=== PATIENT | male | born 1995 | race Caucasian/White ===

== ENCOUNTER 2017-01-04 22:40 | Emergency (ER) | payer BC ==
[2017-01-04 22:48] VITALS: TEMP 98.1
[2017-01-04] MEDS ORDERED: IBUPROFEN 200 MG TAB PO ONE (23:06)
--- NOTE | 2017-01-04 23:06 | EDPHY ---
H & P Stated Complaint: sore throat lungs "on fire" vomiting yesterday Time Seen by Provider: 01/04/17 22:52 HPI/ROS: Chief Complaint: Sore throat, fever, cough HPI: 21-year-old male presenting with 3 days of viral upper respiratory symptoms including cough, body aches, chills, sore throat. Patient states that his body aches have improved he has had worsening sore throat throughout today. Hurts to swallow but is able to swallow. Has not taken any medications since then Advil yesterday which did not help. His has not taken his temperature at home. No nausea or vomiting. No abdominal pain. Is continuing to have some mild body aches. No skin rash. ROS: 10 point Review of Systems is negative except as noted in the HPI. PMH: None Medications: None Allergies: No known drug allergies Social History: No smoking, occasional alcohol, occasional marijuana Family History: non-contributory Physical Exam: Gen: Awake, Alert, No Distress HEENT: Nose: no rhinorrhea Eyes: PERRLA, EOMI Mouth: Moist mucosa diffuse tonsillar and oral pharyngeal erythema with some exudate. Uvula is midline, no peritonsillar swelling or asymmetry Neck: Supple, mild bilateral cervical lymphadenopathy Chest: nontender, lungs clear to auscultation Heart: S1, S2 normal, no murmur Abd: Soft, non-tender, no guarding Back: no CVA tenderness, no midline tenderness Ext: no edema, non-tender Skin: no rash Neuro: CN II-XII intact, Sensation grossly intact, Strength 5/5 in bilateral upper and lower extremities - Personal History Current Tetanus/Diphtheria Vaccine: Yes Current Tetanus Diphtheria and Acellular Pertussis (TDAP): Yes - Medical/Surgical History Hx Asthma: No Hx Chronic Respiratory Disease: No Hx Diabetes: No Hx Cardiac Disease: No Hx Renal Disease: No Hx Cirrhosis: No Hx Alcoholism: No Hx HIV/AIDS: No Hx Splenectomy or Spleen Trauma: No Other PMH: None - Social History Smoking Status: Current every day smoker Constitutional: Initial Vital Signs Temperature (C) 36.7 C 01/04/17 22:44 Heart Rate 88 01/04/17 22:44 Respiratory Rate 19 01/04/17 22:44 Blood Pressure 118/82 H 01/04/17 22:44 O2 Sat (%) 93 01/04/17 22:44 O2 Delivery Mode Room Air Allergies/Adverse Reactions: Unable to Assess Allergy (Unverified 08/16/15 00:50) Home Medications: Medication Instructions Recorded Doryx 01/04/17 Medical Decision Making ED Course/Re-evaluation: Rapid strep is negative. Symptoms are consistent with viral upper respiratory infection. I will recommend alternating ibuprofen with acetaminophen. Over-the -counter decongestants are fine. There is no indication for antibiotics at this time. Will follow up with primary care physician referral. - Data Points Laboratory Results: 01/04/17 01/04/17 Unknown 23:00 Group A Strep Screen NEGATIVE (NEGATIVE) Group A Strep DNA Pending Medications Given: Discontinued Medications Ibuprofen (Motrin) 400 mg PO EDNOW ONE Stop: 01/04/17 23:07 Last Admin: 01/04/17 23:28 Dose: 400 mg Departure - Departure Disposition: Home, Routine, Self-Care Clinical Impression: Viral upper respiratory illness, Bronchitis Condition: Good Instructions: Viral Syndrome (ED), Albuterol (By breathing), How to Use a Metered-Dose Inhaler (ED) Additional Instructions: You may alternate ibuprofen with acetaminophen as needed for fevers, chills, aches or pains. You may take [id number] cough and cold medications according to package instructions for symptom relief. Make sure to drink plenty of fluids and get plenty of rest. You may use the inhaler, 2 puffs with spacer every 4 hours as needed for cough or wheeze. Follow up with primary care physician in 3-4 days if symptoms are not improving. Referrals: NONE *PRIMARY CARE P,. [Primary Care Provider] - As per Instructions Jacob Kaufman MD [Medical Doctor] - As per Instructions
[2017-01-04] MEDS ORDERED: ALBUTEROL INH PREPACK MDI TAKEHOME ONE ×2 (23:36→23:40)
[2017-01-05 00:07] VITALS: BP 118/74; PULSE 89; RESP 20; O2SAT 94
== END 2017-01-05 00:07 | disposition home or self-care (01) ==
DX: J40 Bronchitis, not specified as acute or chronic (principal); J06.9 Acute upper respiratory infection, unspecified; F17.200 Nicotine dependence, unspecified, uncomplicated

== ENCOUNTER 2017-03-23 18:16 | Emergency (ER) | payer BC ==
[2017-03-23 18:27] VITALS: PULSE 93; RESP 16; TEMP 98.2; O2SAT 95
[2017-03-23 18:28] VITALS: BP 113/62
--- NOTE | 2017-03-23 18:41 | EDPHY ---
H & P Time Seen by Provider: 03/23/17 18:34 HPI/ROS: Chief complaint. Seizure HPI. 21-year-old male here by EMS after having a witnessed seizure. Patient tells me was sitting on the couch with friends watching a movie. Then he has a period of time which he does not remember and friends report tonic clonic seizure lasting 45 seconds to 1 minute. Patient is now back to normal. Did not bite his tongue. He did have a seizure 2 years ago but did not have any evaluations since. He is not sick. No recent head injury. Denies drugs or alcohol. No chest pain, shortness of breath, abdominal pain. ROS Constitutional. no fever/chills, no weakness Eyes. no problems with vision ENT. no sore throat, no nasal drainage Cardiovascular. no chest pain Respiratory. no shortness of breath, no cough Abdominal. no abdominal pain, no nausea/vomiting, no diarrhea . no problems urinating MS. no calf pain/swelling, no neck/back pain, no joint pain Skin. no rash Lymph. no swollen glands Neuro. Seizure Past Medical/Surgical History: Attention deficit hyperactivity disorder, seizure Social History: Single, daily smoker, no alcohol Smoking Status: Current every day smoker Physical Exam: General Appearance: Alert well-developed male mild distress vital signs are stable Eyes: Pupils equal and round no pallor or injection. ENT, mucous membranes are moist. No oral pharyngeal or tongue trauma Respiratory: There are no retractions, lungs are clear to auscultation. Cardiovascular: Regular rate and rhythm. Gastrointestinal: Abdomen is soft and nontender, no masses, bowel sounds normal. Neurological: Awake and alert, sensory and motor exams grossly normal. Skin: Warm and dry, no rashes. Musculoskeletal: Neck is supple nontender. Extremities symmetrical, full range of motion. Psychiatric: Patient is oriented X 3, there is no agitation. Constitutional: Initial Vital Signs Temperature (C) 36.8 C 03/23/17 18:25 Heart Rate 93 03/23/17 18:25 Respiratory Rate 16 03/23/17 18:25 Blood Pressure 113/62 03/23/17 18:25 O2 Sat (%) 95 03/23/17 18:25 O2 Delivery Mode Room Air Allergies/Adverse Reactions: No Known Allergies Allergy (Unverified 03/23/17 18:27) Home Medications: Medication Instructions Recorded Kaylin 03/23/17 Medical Decision Making - Diagnostics Imaging Results: Declines head CT Procedures: IV normal saline, seizure precautions ED Course/Re-evaluation: Patient declines head CT Re-evaluation 7:05 p.m.. The patient and I discussed laboratory evaluation, treatment plan including no driving or other dangerous activity until evaluated by neurologist. He expresses understanding and agreement. The patient is alert and oriented to person place time. He is clearly competent to make decisions as well as to be treated as an outpatient Differential Diagnosis: The patient has had a previous seizure without workup. He may have epilepsy. This may be substance abuse or substance withdrawal. I also considered hypoglycemia - Data Points Laboratory Results: Laboratory Results 03/23/17 18:20 03/23/17 18:20 03/23/17 03/23/17 18:20 18:20 WBC 13.88 10^3/uL H 10^3/uL (3.80-9.50) RBC 5.01 10^6/uL 10^6/uL (4.40-6.38) Hgb 15.8 g/dL g/dL (13.7-17.5) Hct 47.5 % % (40.0-51.0) MCV 94.8 fL fL (81.5-99.8) MCH 31.5 pg pg (27.9-34.1) MCHC 33.3 g/dL g/dL (32.4-36.7) RDW 14.0 % % (11.5-15.2) Plt Count 502 10^3/uL H 10^3/uL (150-400) MPV 9.7 fL fL (8.7-11.7) Neut % (Auto) 49.5 % % (39.3-74.2) Lymph % (Auto) 34.7 % % (15.0-45.0) [place] % (Auto) 9.5 % % (4.5-13.0) Eos % (Auto) 5.0 % % (0.6-7.6) Baso % (Auto) 0.9 % % (0.3-1.7) Nucleat RBC Rel Count 0.0 % % (0.0-0.2) Absolute Neuts (auto) 6.87 10^3/uL H 10^3/uL (1.70-6.50) Absolute Lymphs (auto) 4.81 10^3/uL H 10^3/uL (1.00-3.00) Absolute Monos (auto) 1.32 10^3/uL H 10^3/uL (0.30-0.80) Absolute Eos (auto) 0.69 10^3/uL H 10^3/uL (0.03-0.40) Absolute Basos (auto) 0.13 10^3/uL H 10^3/uL (0.02-0.10) Absolute Nucleated RBC 0.00 10^3/uL 10^3/uL (0-0.01) Immature Gran % 0.4 % % (0.0-1.1) Immature Gran # 0.06 10^3/uL 10^3/uL (0.00-0.10) Sodium 139 mEq/L mEq/L (134-144) Potassium 4.4 mEq/L mEq/L (3.5-5.2) Chloride 101 mEq/L mEq/L (97-110) Carbon Dioxide 15 mEq/l L mEq/l (22-31) Anion Gap 23 mEq/L H mEq/L (8-16) BUN 11 mg/dL mg/dL (7-23) Creatinine 0.9 mg/dL mg/dL (0.7-1.3) Estimated GFR > 60 Glucose 94 mg/dL mg/dL (70-100) Calcium 10.1 mg/dL mg/dL (8.5-10.4) Departure - Departure Disposition: Against Medical Advice Clinical Impression: Seizure Condition: Good Instructions: Recurrent Seizures in Adults (ED) Additional Instructions: No driving or other dangerous activity until you are evaluated and cleared by Neurology. Call tomorrow morning for follow-up appointment for Neurology. Return for another seizure. Referrals: Patient,NotPresent [Unknown] - As per Instructions
[2017-03-23 18:53] LABS: % IMMATURE GRANULYOCYTES 0.4 % (0.0-1.1); ABSOLUTE IMMATURE GRANULOCYTES 0.06 10^3/uL (0.00-0.10); ADD DIFF? NO; ADD MORPH? NO; ADD SCAN? NO; ATYPICAL LYMPHOCYTE FLAG 20 (0-99); FRAGMENT RBC FLAG 0 (0-99); HEMATOCRIT 47.5 % (40.0-51.0); HEMOGLOBIN 15.8 g/dL (13.7-17.5); LEFT SHIFT FLG 0 (0-99); LIPEMIA HEMOLYSIS FLAG 80 (0-99); MEAN CELL HEMOGLOBIN 31.5 pg (27.9-34.1); MEAN CELL HEMOGLOBIN CONCENTR. 33.3 g/dL (32.4-36.7); MEAN CELL VOLUME 94.8 fL (81.5-99.8); MEAN PLATELET VOLUME 9.7 fL (8.7-11.7); PLATELET CLUMPS FLAG 0 (0-99); PLATELET COUNT 502 10^3/uL (150-400); RED BLOOD CELL COUNT 5.01 10^6/uL (4.40-6.38)
[2017-03-23 18:59] LABS: ANION GAP 23 mEq/L (8-16); CALCIUM 10.1 mg/dL (8.5-10.4); CARBON DIOXIDE 15 mEq/l (22-31); CHLORIDE 101 mEq/L (97-110); CREATININE 0.9 mg/dL (0.7-1.3); GLOMERULAR FILTRATION RATE > 60; GLUCOSE 94 mg/dL (70-100); POTASSIUM 4.4 mEq/L (3.5-5.2); SODIUM 139 mEq/L (134-144)
== END 2017-03-23 19:13 | disposition left against medical advice (07) ==
LOC: EDUNIT#
DX: G40.909 Epilepsy, unspecified, not intractable, without status epilepticus (principal); F17.200 Nicotine dependence, unspecified, uncomplicated

== ENCOUNTER 2017-03-27 09:47 | Emergency (ER) | payer BC ==
--- NOTE | 2017-03-27 10:26 | EDPHY ---
H & P Time Seen by Provider: 03/27/17 10:06 HPI/ROS: Chief complaint. Nausea vomiting HPI. 21-year-old male presents emergency department with nausea vomiting this morning with some streaks of blood. He had a fever 2 days ago with slight sore throat. No diarrhea. He had an noticed any abdominal pain but with nurse examining his abdomen he has slight left lower quadrant pain only with palpation. No chest discomfort or trouble breathing. No similar symptoms of vomiting blood previously. No epigastric pain. Patient was seen in our emergency department 4 days ago for his 2nd seizure and declined head CT and in fact left AMA before labs were returned. No further seizures since ROS Constitutional. no fever/chills, no weakness Eyes. no problems with vision ENT. no sore throat, no nasal drainage Cardiovascular. no chest pain Respiratory. no shortness of breath, no cough Abdominal. Nausea vomiting with slight left lower quadrant abdominal pain. Streaks of blood in emesis . no problems urinating MS. no calf pain/swelling, no neck/back pain, no joint pain Skin. no rash Lymph. no swollen glands Neuro. no headache, no dizziness, no difficulty walking or with speech Past Medical/Surgical History: Seizure and attention deficit hyperactivity disorder Social History: Single, daily smoker, no alcohol Smoking Status: Current every day smoker Physical Exam: General Appearance: Alert well-developed male mild distress vital signs significant for heart rate 96 Eyes: Pupils equal and round no pallor or injection. ENT, Mouth: Mucous membranes are moist. Respiratory: There are no retractions, lungs are clear to auscultation. Cardiovascular: Regular rate and rhythm. Gastrointestinal: Abdomen is soft with slight tenderness in the left lower quadrant. No masses. Normal bowel sounds Neurological: Awake and alert, sensory and motor exams grossly normal. Skin: Warm and dry, no rashes. Musculoskeletal: Neck is supple nontender. Extremities symmetrical, full range of motion. Psychiatric: Patient is oriented X 3, there is no agitation. Constitutional: Initial Vital Signs Temperature (C) 36.7 C 03/27/17 09:52 Heart Rate 96 03/27/17 09:52 Respiratory Rate 17 03/27/17 09:52 Blood Pressure 108/71 03/27/17 09:52 O2 Sat (%) 95 03/27/17 09:52 O2 Delivery Mode Room Air Allergies/Adverse Reactions: diazepam [From Valium] Allergy (Verified 03/27/17 09:52) Home Medications: Medication Instructions Recorded Coreye 03/23/17 Famotidine [Pepcid] 40 mg PO DAILY #10 tablet 03/27/17 Medical Decision Making - Diagnostics Imaging Results: Imaging Impressions Abdomen CT 03/27/17 11:39 Impression: 1. Incidental small hemangioma suspected within the liver. 2. Reticular nodular densities left lower lobe posterior laterally possibly from focal radiculitis. 3. No CT evidence of appendicitis, abscess or bowel obstruction. Findings discussed with Sheng Yuan M.D. at 13:08 hour, 03/27/2017. CT abdomen and pelvis with IV contrast reviewed by me and discussed with Dr. Rai is nonacute Procedures: IV normal saline. IV Pepcid and Zofran ED Course/Re-evaluation: Re-evaluation 11:35 a.m. patient is stable. We discussed laboratory evaluation in markedly elevated white blood cell count. We discussed abdominal CT with IV contrast. He expresses understanding and agreement. Re-evaluation 1:30 p.m.--patient is stable and without symptoms. No vomiting in the emergency department. He and I discussed imaging study results, treatment plan, criteria for return, importance of follow-up and further evaluation. He expresses understanding and agreement Differential Diagnosis: I considered pancreatitis, diverticulitis, peptic ulcer disease, GI bleeding. This was likely a Jennifer-Menendez tear - Data Points Laboratory Results: Laboratory Results 03/27/17 10:05 03/27/17 10:05 03/27/17 03/27/17 10:05 10:05 WBC 14.69 10^3/uL H 10^3/uL (3.80-9.50) RBC 4.50 10^6/uL 10^6/uL (4.40-6.38) Hgb 14.1 g/dL g/dL (13.7-17.5) Hct 42.0 % % (40.0-51.0) MCV 93.3 fL fL (81.5-99.8) MCH 31.3 pg pg (27.9-34.1) MCHC 33.6 g/dL g/dL (32.4-36.7) RDW 13.6 % % (11.5-15.2) Plt Count 330 10^3/uL 10^3/uL (150-400) MPV 9.5 fL fL (8.7-11.7) Neut % (Auto) 77.9 % H % (39.3-74.2) Lymph % (Auto) 11.5 % L % (15.0-45.0) [place] % (Auto) 7.6 % % (4.5-13.0) Eos % (Auto) 2.0 % % (0.6-7.6) Baso % (Auto) 0.5 % % (0.3-1.7) Nucleat RBC Rel Count 0.0 % % (0.0-0.2) Absolute Neuts (auto) 11.43 10^3/uL H 10^3/uL (1.70-6.50) Absolute Lymphs (auto) 1.69 10^3/uL 10^3/uL (1.00-3.00) Absolute Monos (auto) 1.11 10^3/uL H 10^3/uL (0.30-0.80) Absolute Eos (auto) 0.30 10^3/uL 10^3/uL (0.03-0.40) Absolute Basos (auto) 0.08 10^3/uL 10^3/uL (0.02-0.10) Absolute Nucleated RBC 0.00 10^3/uL 10^3/uL (0-0.01) Immature Gran % 0.5 % % (0.0-1.1) Immature Gran # 0.08 10^3/uL 10^3/uL (0.00-0.10) Sodium 143 mEq/L mEq/L (134-144) Potassium 4.4 mEq/L mEq/L (3.5-5.2) Chloride 108 mEq/L mEq/L (97-110) Carbon Dioxide 21 mEq/l L mEq/l (22-31) Anion Gap 14 mEq/L mEq/L (8-16) BUN 10 mg/dL mg/dL (7-23) Creatinine 0.6 mg/dL L mg/dL (0.7-1.3) Estimated GFR > 60 Glucose 90 mg/dL mg/dL (70-100) Calcium 9.4 mg/dL mg/dL (8.5-10.4) Total Bilirubin 0.3 mg/dL mg/dL (0.1-1.4) Conjugated Bilirubin 0.3 mg/dL mg/dL (0.0-0.5) Unconjugated Bilirubin 0.0 mg/dL mg/dL (0.0-1.1) AST 30 IU/L IU/L (17-59) ALT 27 IU/L IU/L (21-72) Alkaline Phosphatase 73 IU/L IU/L (38-126) Total Protein 6.7 g/dL g/dL (6.3-8.2) Albumin 4.1 g/dL g/dL (3.5-5.0) Lipase 97.0 IU/L IU/L (23-300) Medications Given: Discontinued Medications Sodium Chloride (Ns) 1,000 mls @ 0 mls/hr IV EDNOW ONE; Wide Open PRN Reason: Protocol Stop: 03/27/17 10:36 Last Admin: 03/27/17 10:58 Dose: 1,000 mls Famotidine/Sodium Chloride (Pepcid 20 Mg (Premix)) 50 mls @ 200 mls/hr IV EDNOW ONE Stop: 03/27/17 10:49 Last Admin: 03/27/17 10:58 Dose: 50 mls Ondansetron HCl (Zofran) 4 mg IVP EDNOW ONE Stop: 03/27/17 10:36 Last Admin: 03/27/17 10:58 Dose: 4 mg Departure - Departure Disposition: Home, Routine, Self-Care Clinical Impression: Abdominal pain Qualifiers: Abdominal location: left lower quadrant Qualified Code(s): R10.32 - Left lower quadrant pain Condition: Good Instructions: Gastritis (ED) Additional Instructions: Caution with aspirin, Advil, alcohol as these could irritate your stomach. Pepcid daily to help soothe stomach. Zofran if needed for nausea and vomiting. Return for worsening symptoms. Recheck in 2-3 days if not improved. Referrals: NONE *PRIMARY CARE P,. [Primary Care Provider] - As per Instructions Nilson Fisher MD [Medical Doctor] - 2-3 days, if not improved Prescriptions: Famotidine [Pepcid] 40 mg PO DAILY #10 tablet
[2017-03-27] MEDS ORDERED: FAMOTIDINE 20 MG/NACL 50 ML IV ONE (10:35)
[2017-03-27] MEDS ORDERED: ONDANSETRON 4 MG/2 ML VIAL IVP ONE (10:35)
[2017-03-27] MEDS ORDERED: NS 1,000 ML IV ONE (10:35)
[2017-03-27 10:41] LABS: % IMMATURE GRANULYOCYTES 0.5 % (0.0-1.1); ABSOLUTE IMMATURE GRANULOCYTES 0.08 10^3/uL (0.00-0.10); ADD DIFF? NO; ADD MORPH? NO; ADD SCAN? NO; ATYPICAL LYMPHOCYTE FLAG 10 (0-99); FRAGMENT RBC FLAG 0 (0-99); HEMOGLOBIN 14.1 g/dL (13.7-17.5); LEFT SHIFT FLG 0 (0-99); LIPEMIA HEMOLYSIS FLAG 80 (0-99); MEAN CELL HEMOGLOBIN 31.3 pg (27.9-34.1); MEAN CELL HEMOGLOBIN CONCENTR. 33.6 g/dL (32.4-36.7); MEAN CELL VOLUME 93.3 fL (81.5-99.8); MEAN PLATELET VOLUME 9.5 fL (8.7-11.7); PLATELET CLUMPS FLAG 20 (0-99); PLATELET COUNT 330 10^3/uL (150-400); RED CELL DISTRIBUTION WIDTH 13.6 % (11.5-15.2)
[2017-03-27 10:47] LABS: ALANINE AMINOTRANSFERASE 27 IU/L (21-72); ALBUMIN 4.1 g/dL (3.5-5.0); ALKALINE PHOSPHATASE 73 IU/L (38-126); ANION GAP 14 mEq/L (8-16); ASPARTATE AMINOTRANSFERASE 30 IU/L (17-59); BILIRUBIN,TOTAL 0.3 mg/dL (0.1-1.4); BILIRUBIN-CONJUGATED 0.3 mg/dL (0.0-0.5); CALCIUM 9.4 mg/dL (8.5-10.4); CARBON DIOXIDE 21 mEq/l (22-31); CHLORIDE 108 mEq/L (97-110); CREATININE 0.6 mg/dL (0.7-1.3); GLOMERULAR FILTRATION RATE > 60; GLUCOSE 90 mg/dL (70-100); POTASSIUM 4.4 mEq/L (3.5-5.2); SODIUM 143 mEq/L (134-144); TOTAL PROTEIN 6.7 g/dL (6.3-8.2)
[2017-03-27] MEDS ORDERED: IOPAMIDOL (ISOVUE-300) 100 ML BTL ONE (12:03)
[2017-03-27 12:35] VITALS: RESP 16
[2017-03-27 13:48] VITALS: BP 122/59; PULSE 71; TEMP 98.4; O2SAT 94
== END 2017-03-27 13:46 | disposition home or self-care (01) ==
DX: R10.32 Left lower quadrant pain (principal); E86.9 Volume depletion, unspecified; F17.200 Nicotine dependence, unspecified, uncomplicated
CPT/HCPCS: 96374; J2405; Q9967